=== PATIENT | female | born 1930 | race American Indian/Alaskan Native ===

== ENCOUNTER 2018-02-25 08:07 | Day surgery (SDC) | payer MEDICARE ==
[2018-02-25] MEDS ORDERED: NACL 0.9% 1000 ML 1,000 ML ONE (08:26)
[2018-02-25] MEDS ORDERED: DIPRIVAN 10 MG/ML IV ONE ×2 (08:43)
[2018-02-25] MEDS ORDERED: TRIPLE ANTIBIOTIC TP ONE ×2 (08:49→10:25)
[2018-02-25] MEDS ORDERED: WATER FOR IRRIG STERILE IR ONE (08:49)
--- NOTE | 2018-02-25 08:56 | Anesthesia Consultation ---
Anesthesia Consult and Med Hx Date of service: 02/25/18 - Airway Anesthetic Teeth Evaluation: Edentulous ROM Head & Neck: Adequate Mental/Hyoid Distance: Adequate Intubation Access Assessment: Probably Good (pt unable to participate in airway assessment due to mental status) - Pulmonary Exam CTA: Yes - Cardiac Exam Cardiac Exam: RRR - Pre-Operative Health Status ASA Pre-Surgery Classification: ASA3 Proposed Anesthetic Plan: MAC - Pulmonary Hx Smoking: No Hx Asthma: No Hx Respiratory Symptoms: No SOB: No COPD: No Home Oxygen Therapy: No Hx Pneumonia: No Hx Sleep Apnea: No - Cardiovascular System Hx Hypertension: No Hx Coronary Artery Disease: No Hx Heart Attack/AMI: No Hx Angina: No Hx Percutaneous Transluminal Coronary Angioplasty (PTCA): No Hx Cardia Arrhythmia: No Hx Pacemaker: No Hx Internal Defibrillator: No Hx Valvular Heart Disease: No Hx Heart Murmur: No Hx Peripheral Vascular Disease: No - Central Nervous System Hx Neuromuscular Disorder: No Hx Seizures: No CVA: No Hx Back Pain: No Hx Psychiatric Problems: 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
[2018-02-25] MEDS ORDERED: XYLOCAINE MPF 2% ONE (09:00)
[2018-02-25] MEDS ORDERED: NACL 0.9% 1000 ML 1,000 ML IV SCH (10:00)
[2018-02-25] MEDS ORDERED: SILVER NITRATE TP ONE (10:22)
[2018-02-25 11:22] VITALS: BP 113/52
--- NOTE | 2018-02-25 12:24 | Operative Report ---
Operative Report Operative Report: Operative Report: Date of procedure: 02/25/2018 Procedure: Esophagogastroduodenoscopy with percutaneous endoscopic gastrostomy tube placement Attending physician: Lalo Emery MD Cmm Inspector: Lalo Emery MD Indication: Patient is a 87-year-old female who presented with a history of cerebrovascular disease, dementia feeding difficulty and oropharyngeal dysphagia. Patient has a malfunctioning gastrostomy tube with mal positioning of the gastrostomy tube. An endoscopy is done under these circumstances in an attempt to remove the indwelling Sheriff catheter which is placed in the gastrostomy tube position which is felt to possibly have a retractile tube with a possible fistulous opening, also, to place a percutaneous endoscopic gastrostomy tube for enteral feeding and administration of medications. Consent: Informed consent was obtained after advising the patients family regarding nature of this procedure, its indications, potential benefits as well as possible complications including but not limited to bleeding perforation and adverse reaction to medication, infection as well as other cardiopulmonary complications. An informed written and verbal consent was then obtained after due opportunity was provided for questions and answers. Monitoring: Patient was monitored continuously with pulse oximetry and electrocardiographic recordings as well as blood pressure recordings. Vital signs remained stable throughout this procedure with no untoward events. Preoperative assessment: Patient was assessed immediately prior to this procedure for capacity to tolerate monitored anesthesia care and moderate sedation as well as general anesthesia. Patient's ASA classification is 3, Mallampati class is 2, Hyomental distance is 3. Instrument: [employer] video endoscope. [place] percutaneous endoscopic gastrostomy tube kit Medications: Propofol given intravenously in divided doses. For details please refer to anesthesia records. Description of procedure: Patient was placed in a supine position after achieving sedation, the endoscope was introduced into the esophagus under direct vision. It was then advanced beyond the esophagus into the stomach and then beyond the stomach into the duodenum and to the second portion of the duodenum. It was subsequently withdrawn back into the stomach. Subsequently, a precise location for the placement of the percutaneous endoscopic gastrostomy tube was identified by removing the malfunctioning sheriff catheter and placing a wide wire which was grasped with a snare. Following this, a [place] percutaneous endoscopic gastrostomy tube was successfully placed using the Ponsky pull-through method. The following endoscopic findings were noted. Findings: Esophagus was normal. The Sheriff catheter was mal positioned in the small intestine. There were mucosal changes suggestive of gastritis in the gastric antrum. A [place] percutaneous endoscopic gastrostomy tube was successfully placed. The duodenum was normal to the second portion. Impression: Esophagogastroduodenoscopy with successful placement of a 20 [place] percutaneous endoscopic gastrostomy tube. Successful removal of a malpositioned sheriff catheter. Plan: The tube site is currently at 3.0 cm. It should be cleaned daily with Betadine and peroxide. Triple Antibiotic should be applied daily to the site with dry gauze dressing a for at least 2-3 weeks. The tube site should be carefully inspected daily for any redness or discharge. The tube should be flushed with 100 mL of water every 6 hours. The tube should also be flushed additionally after administration medications or after completing a feeding session. Tube may be used for enteral feeding immediately. The tube may be used immediately for administration of medications. If the tube is accidentally dislodged, a clinical psychology professor should be notified immediately. The advice however and recommendation is to begin tube feeding at a slow rate of 30 mL per hour and gradually increase as may be instructed after 8 hours. Residuals from the feeding tube should be checked every 3 hours for at least 24- 36 hours. If patient tolerates feeding, the feeding volume should be optimized as may advised by the dietitian. If patient has high residuals, then caution should be used in increasing the feeding rate to avoid aspiration. The head of the bed should be kept at 30 always.
--- NOTE | 2018-02-25 13:08 | Discharge Summary ---
Short Stay Discharge Plan Activity: fall precautions Weight Bearing Status: Non-Weight Bearing Diet: other (Resume tube feeding) Follow up with: SWAPNIL MUIR MD [Primary Care Provider] - 7 Days
--- NOTE | 2018-02-25 14:25 | Post Anesthesia Evaluation ---
- Post Anesthesia Evaluation Patient Participated: Yes Airway Patent: Yes Stable Respiratory Function: Yes Nausea/Vomiting: No Temp > 96.8F: Yes Pain Manageable: Yes Adequeate Hydration: Yes Anesthesia Complications: No
--- NOTE | 2018-02-25 14:25 | Anesthesia Day of Surgery ---
Anesthesia Day of Surgery - Day of Surgery Patient Examined: Yes Patient H&P Reviewed: Yes Patient is NPO: Yes
== END 2018-02-25 08:08 | disposition home or self-care (01) ==
LOC: GIO 08:07
PROVIDERS: ATTEND Internal Medicine Gastroenterology
DX: K94.23 Gastrostomy malfunction (principal); M06.9 Rheumatoid arthritis, unspecified; G30.9 Alzheimer's disease, unspecified; F02.80 Dementia in other diseases classified elsewhere, unspecified severity, without behavioral disturbance, psychotic disturbance, mood disturbance, and anxiety; F32.9 Major depressive disorder, single episode, unspecified; Y83.3 Surgical operation with formation of external stoma as the cause of abnormal reaction of the patient, or of later complication, without mention of misadventure at the time of the procedure
CPT/HCPCS: 43246; J2704; J7030; A6250